=== PATIENT | female | born 1980 | race Caucasian/White ===

== ENCOUNTER 2023-09-26 03:59 | Day surgery (SDC) | payer BC ==
[2023-09-16 12:48] VITALS: BMI 38.9
[~2023-09-26 03:59] MED LIST: LACTATED RINGERS SOLUTION 1,000 ML IV SCH; ONDANSETRON 4 MG/2 ML VIAL IVPUSH PRN; oxyCODONE HCL 5 MG TABLET PO PRN
[2023-09-26] MEDS ORDERED: HEPARIN NA (PORCINE) 5,000 UNITS/ML 1ML VIAL ONE (07:15)
[2023-09-26] MEDS ORDERED: BUPIVACAINE HCL/PF 0.25% (2.5MG/ML) 10 ML VIAL ONE (07:15)
[2023-09-26] MEDS ORDERED: MIDAZOLAM HCL 2 MG/2 ML SINGLE DOSE VIAL ONE (07:47)
[2023-09-26] MEDS ORDERED: ROCURONIUM BROMIDE 50 MG/5 ML SYRINGE ONE (07:48)
[2023-09-26] MEDS ORDERED: PROPOFOL 20 ML ONE (07:48)
[2023-09-26] MEDS ORDERED: SUCCINYLCHOLINE CHLORIDE 200 MG/10 ML SYRINGE ONE (08:11)
[2023-09-26] MEDS ORDERED: cefOXitin SODIUM 2 GM VIAL (RESTRICTED TO ID) IVPB ONE (08:26)
[2023-09-26] MEDS: ceFAZolin SODIUM 1 GM VIAL IVPB ONE ×2 (08:27)
[2023-09-26] MEDS: BUPIVACAINE HCL/PF 0.25% (2.5MG/ML) 10 ML VIAL IJ ONE ×3 (08:32)
[2023-09-26] MEDS ORDERED: NEOSTIGMINE METHYLSULFATE 0.5 MG/1 ML - 10 ML MDV ONE (09:09)
[2023-09-26] MEDS ORDERED: GLYCOPYRROLATE 0.2 MG/1 ML VIAL ONE ×2 (09:09→09:10)
[2023-09-26] MEDS ORDERED: LACTATED RINGERS SOLUTION 1,000 ML IV SCH (09:45)
[2023-09-26] MEDS ORDERED: oxyCODONE HCL 5 MG TABLET PO PRN (09:53)
[2023-09-26] MEDS: ACETAMINOPHEN INJECTION 100 ML IVPB ONE (10:35)
[2023-09-26] MEDS: ACETAMINOPHEN 1000 MG/100 ML BAG IVPB ONE (10:35)
[2023-09-26] MEDS: LACTATED RINGERS SOLUTION 1,000 ML IV SCH (11:00)
[2023-09-26 12:36] VITALS: RESP 18
[2023-09-26] MEDS ORDERED: oxyCODONE HCL 5 MG TABLET ONE (14:03)
[2023-09-26] MEDS: oxyCODONE HCL 5 MG TABLET PO PRN (14:04)
[2023-09-26 14:25] VITALS: BP 134/76; PULSE 98; TEMP 98.9
== END 2023-09-26 15:00 | disposition home or self-care (01) ==
LOC: JASU-SURG 03:59
PROVIDERS: ATTEND Surgery
PROC: 0FT44ZZ Resection of Gallbladder, Percutaneous Endoscopic Approach (ICD-10-PCS; principal; 2023-09-26 08:00)
DX: K80.20 Calculus of gallbladder without cholecystitis without obstruction (principal)
CPT/HCPCS: 81025; 88304-TC; 94760; J0131; J1644